=== PATIENT | female | born 1970 | race Caucasian/White ===

== ENCOUNTER 2016-10-15 17:34 | Emergency (ER) | payer OTHER ==
[~2016-10-15] VITALS: Ht 157.5 cm; Wt 80.7 kg
[~2016-10-15 17:34] MED LIST: ACETAMINOPHEN-H1 TA2; ADVAIR DISKUS 21 DSK; NORCO 5/325 MG1 TAB PO; PROVENTIL0.09 MG/A1 IH; QVAR HFA M80 MCG/ACT IH; SYNTHROID0.075 M1; SYNTHROID0.1 MG PO; SYNTHROID0.125 MG PO; SYNTHROID0.15 MG PO
[2016-10-15 17:51] VITALS: BP 158/71
--- NOTE | 2016-10-15 19:15 | NUR ---
PATIENT PRESENTS TO ED WITH BLE FEET SWELLING AND RIGHT CALF PAIN . PT STATES STARTED A FEW DAYS AGO, TOOK NORCO 10/325 WITH MINIMAL RELIEF . DENIES N/V/D; SKIN IS PINK/WARM/DRY; AAOX4 WITH EVEN AND STEADY GAIT; LUNGS CLEAR BL; HR EVEN AND REGULAR; PT DENIES ANY FEVER, CP, SOB, OR COUGH AT THIS TIME; PATIENT STATES PAIN OF 10/10 AT THIS TIME; VSS; PATIENT POSITIONED FOR COMFORT; HOB ELEVATED; BEDRAILS UP X2; BED DOWN. ER MD MADE AWARE OF PT STATUS.
--- NOTE | 2016-10-15 19:16 | NUR ---
Patient ambulated to bed 7. RN evaluating patient at bedside.
--- NOTE | 2016-10-15 19:16 | NUR ---
Jesús ventura in ED - 10/15/16 at 1920 by [email or web address] Patient ambulated to bed 8. RN evaluating patient at bedside.
--- NOTE | 2016-10-15 19:39 | NUR ---
Dr. Aguillon evaluating patient at bedside.
--- NOTE | 2016-10-15 20:18 | NUR ---
PT TAKEN TO ULTRASOUND
--- NOTE | 2016-10-15 20:48 | NUR ---
PT RETURN FROM ULTRASOUND
[2016-10-15] MEDS ORDERED: HYDROmorphone 1 MG/ML AMP IVP ONE (21:10)
--- NOTE | 2016-10-15 22:10 | NUR ---
IV removed, catheter intact and site benign. Applied folded 4x4 gauze and tape to stop bleeding.
[2016-10-15 22:11] VITALS: BP 164/99
--- NOTE | 2016-10-15 22:11 | NUR ---
Patient discharged with v/s stable. Written and verbal after care instructions given and explained. Patient alert, oriented and verbalized understanding of instructions. Ambulatory with steady gait. All questions addressed prior to discharge. ID band removed. Patient advised to follow up with PMD. Rx of LOPID 600MG TABLET given. Patient educated on indication of medication including possible reaction and side effects. Opportunity to ask questions provided and answered.
== END 2016-10-15 22:11 | disposition home or self-care (01) ==
LOC: MED 17:41
PROC: 3E033GC Introduction of Other Therapeutic Substance into Peripheral Vein, Percutaneous Approach (ICD-10-PCS; principal; 2016-10-15)
PROC: 4A02X4Z Measurement of Cardiac Electrical Activity, External Approach (ICD-10-PCS; principal; 2016-10-15)
PROC: B54DZZZ Ultrasonography of Bilateral Lower Extremity Veins (ICD-10-PCS; 2016-10-15)
DX: I73.9 Peripheral vascular disease, unspecified (principal); R03.0 Elevated blood-pressure reading, without diagnosis of hypertension; Z32.02 Encounter for pregnancy test, result negative
CPT/HCPCS: 36415; 71010; 80053; 80061; 81002; 81025; 82550; 82553; 83880; 84484; 85025; 85379; 93005; 93970; 96374; 99285; J1170; Q0092

== ENCOUNTER 2016-12-12 19:34 | Emergency (ER) | payer OTHER ==
[~2016-12-12] VITALS: Ht 162.6 cm; Wt 78.1 kg
[~2016-12-12 19:34] MED LIST changes: -ACETAMINOPHEN-H1 TA2; -ADVAIR DISKUS 21 DSK; +ALBU0.0952 IH; +BECL0.089 IH; -NORCO 5/325 MG1 TAB PO; -PROVENTIL0.09 MG/A1 IH; -QVAR HFA M80 MCG/ACT IH; +SYN.1 PO; -SYNTHROID0.075 M1; -SYNTHROID0.1 MG PO; -SYNTHROID0.125 MG PO; -SYNTHROID0.15 MG PO
[2016-12-12 19:43] VITALS: BP 139/99
--- NOTE | 2016-12-12 19:50 | NUR ---
PT TAKEN TO OF2
--- NOTE | 2016-12-12 19:51 | NUR ---
PA EVALUATING PATIENT
[2016-12-12] MEDS ORDERED: diphenhydrAMINE 50 MG/ML VIAL IVP ONE (20:00)
[2016-12-12] MEDS ORDERED: methylPREDNISolone SS 125 MG in WATER STERILE 2 ML IV ONE (20:00)
[2016-12-12] MEDS ORDERED: FAMOTIDINE 20 MG/2 ML VIAL IVP ONE (20:00)
--- NOTE | 2016-12-12 20:35 | NUR ---
PT MOVED TO BED 3
--- NOTE | 2016-12-12 20:50 | NUR ---
45 Y/O F W/C/O HAVING AN ALLERGIC REACTION TO NAPROXEN. LUNGS CLEAR, SATS 98%. PT DENIES N/V/D; SKIN IS PINK/WARM/DRY; AAOX4 WITH EVEN AND STEADY GAIT; HR EVEN AND REGULAR; PT DENIES ANY FEVER, CP, SOB, OR COUGH AT THIS TIME; PATIENT STATES PAIN OF 8/10 AT THIS TIME; VSS; PATIENT POSITIONED FOR COMFORT; HOB ELEVATED; BEDRAILS UP X2; BED DOWN. ER MD MADE AWARE OF PT STATUS.
--- NOTE | 2016-12-12 21:30 | NUR ---
UNABLE TO START PIV, CN WILL ATTEMPT PIV
--- NOTE | 2016-12-12 21:55 | NUR ---
Dr. Martines evaluating patient at bedside.
[2016-12-12] MEDS ORDERED: predniSONE 20 MG TAB PO ONE (22:00)
[2016-12-12] MEDS ORDERED: FAMOTIDINE 20 MG TAB PO ONE (22:00)
[2016-12-12] MEDS ORDERED: diphenhydrAMINE 50 MG CAP PO ONE (22:00)
[2016-12-12] MEDS ORDERED: methylPREDNISolone SS 125 MG in WATER STERILE 2 ML IM ONE (22:00)
[2016-12-12] MEDS ORDERED: HYDROmorphone 1 MG/ML AMP IM ONE (22:00)
[2016-12-12] MEDS ORDERED: ONDANSETRON 4 MG ODT PO ONE (22:00)
--- NOTE | 2016-12-12 22:00 | NUR ---
PIV UNSUCCESSFUL. MD WILL CHANGE MEDS TO PO AND IM.
--- NOTE | 2016-12-12 22:36 | NUR ---
PT MOVED TO OF4
[2016-12-12 23:23] VITALS: BP 125/76
--- NOTE | 2016-12-12 23:24 | NUR ---
Patient discharged with v/s stable. Written and verbal after care instructions given and explained. Patient alert, oriented and verbalized understanding of instructions. Ambulatory with steady gait. All questions addressed prior to discharge. ID band removed. Patient advised to follow up with PMD. Rx of PREDISONE 20MG BID given. Patient educated on indication of medication including possible reaction and side effects. Opportunity to ask questions provided and answered.
== END 2016-12-12 23:24 | disposition home or self-care (01) ==
LOC: MED 19:34
DX: L29.9 Pruritus, unspecified (principal); T39.315A Adverse effect of propionic acid derivatives, initial encounter; Y92.89 Other specified places as the place of occurrence of the external cause; J45.909 Unspecified asthma, uncomplicated; Z88.6 Allergy status to analgesic agent; Z88.5 Allergy status to narcotic agent; Z88.1 Allergy status to other antibiotic agents
CPT/HCPCS: 96372; 99284; J1170; J1200; J2930; J3490; Q0163; S0119

== ENCOUNTER 2018-11-18 08:46 | Emergency (ER) | payer MEDICAID ==
[~2018-11-18] VITALS: Ht 152.4 cm; Wt 84.4 kg
--- NOTE | 2018-11-18 09:05 | NUR ---
BIB FRIEND. AAO X4 C/O LOWER ABD DIONI PAIN OF 7/10 THAT RADIATES TO R SIDE OF ABDOMEN WITH + N/V/D X 2 WEEKS, LBM: 11/18/18. TENDER TO TOUCH. ACTIVE BOWEL SOUNDS TO ALL 4 QUADRANTS. PALPATED NON MOBILE LUMP UNDER UMBILICAL AREA. DENIES SOB. AFEBRILE. HOB UP. BED SIDE RAILS UP X1. ON LOW BED POSITION, LOCKED. ER MADE AWARE OF PT STATUS.
--- NOTE | 2018-11-18 09:05 | NUR ---
Patient ambulated to bed 8. RN evaluating patient at bedside.
--- NOTE | 2018-11-18 09:10 | NUR ---
UNABLE TO GIVE URINE SPECIMEN AT THIS TIME
[2018-11-18] MEDS ORDERED: NACL 0.9% 1,000 ML IV SCH (09:20)
[2018-11-18] MEDS ORDERED: DICYCLOMINE HCL LIQUID 10 MG/5 ML UDC PO ONE (09:20)
[2018-11-18] MEDS ORDERED: NACL 0.9% 1,000 ML IV ONE (09:20)
[2018-11-18] MEDS ORDERED: PROMETHAZINE 25 MG/ML VIAL IM ONE (09:20)
--- NOTE | 2018-11-18 09:32 | NUR ---
US tech at bedside for exam.
[2018-11-18 09:41] LABS: BASOPHILS # (AUTO) 0.1 K/uL (0.00-0.22); BASOPHILS % (AUTO) 0.4 % (0.0-2.0); EOSINOPHILS # (AUTO) 0.2 K/uL (0-0.4); EOSINOPHILS % (AUTO) 1.4 % (0.0-4.0); HEMATOCRIT 41.1 % (36-48); HEMOGLOBIN 13.6 g/dL (12.0-16.0); LYMPHOCYTES # (AUTO) 1.9 K/uL (2.5-16.5); LYMPHOCYTES % (AUTO) 14.2 % (20.5-51.1); MEAN CORPUSCULAR HEMOGLOBIN 28 pg (27-31); MEAN CORPUSCULAR HGB CONC 33 g/dL (33-37); MEAN CORPUSCULAR VOLUME 84.8 fL (80-94); MONOCYTES # (AUTO) 0.7 K/uL (0.8-1.0); MONOCYTES % (AUTO) 5.2 % (1.7-9.3); NEUTROPHILS # (AUTO) 10.6 K/uL (1.8-7.7); NEUTROPHILS % (AUTO) 78.8 % (42.2-75.2); PLATELET COUNT (AUTO) 263 K/uL (140-450); RED BLOOD CELL COUNT(AUTO) 4.84 MIL/uL (4.20-5.40); RED CELL DISTRIBUTION WIDTH 14.9 % (11.6-13.7); WHITE BLOOD COUNT (AUTO) 13.4 K/uL (4.8-10.8)
[2018-11-18 09:49] LABS: ANION GAP 15.4 (8-16); CARBON DIOXIDE 26.3 mmol/L (21-32); CREATININE 0.9 mg/dL (0.6-1.3); POTASSIUM 3.7 mmol/L (3.5-5.1)
--- NOTE | 2018-11-18 09:50 | NUR ---
PT UNABLE TO GIVE URINE SPECIMEN AT THIS TIME.
[2018-11-18 09:54] LABS: ALBUMIN 3.9 g/dL (3.4-5.0); TOTAL BILIRUBIN 0.3 mg/dL (0.0-1.0)
--- NOTE | 2018-11-18 09:59 | NUR ---
Patient taken to CT scan via wheelchair by tech.
--- NOTE | 2018-11-18 10:08 | NUR ---
Patient returned from CT scan. RN re-evaluating patient at bedside.
--- NOTE | 2018-11-18 10:16 | NUR ---
Dr. Stephens re-evaluating patient at bedside.
--- NOTE | 2018-11-18 10:52 | NUR ---
URINE SAMPLE OBTAINED FROM PT.
[2018-11-18 11:21] LABS: APPEARANCE,URINE CLEAR (CLEAR); BILIRUBIN,URINE NEGATIVE (NEGATIVE); BLOOD, URINE 2+ (NEGATIVE); COLOR,URINE YELLOW (YELLOW); LEUKOCYTE ESTERASE ,URINE NEGATIVE (NEGATIVE); NITRITE, URINE NEGATIVE (NEGATIVE); UGLUCOSE NEGATIVE (NEGATIVE)
[2018-11-18 11:29] LABS: RBC,URINE 11-20 (MOD) /HPF (0-5); WBC,URINE 0-5 /HPF (0-5)
[2018-11-18 11:30] LABS: URINE AMORPHOUS URATE 1+ /HPF (None Seen)
--- NOTE | 2018-11-18 11:49 | NUR ---
PATIENT GIVEN BUS PASS VOUCHER.
[2018-11-18 11:50] VITALS: BP 129/78
--- NOTE | 2018-11-18 11:50 | NUR ---
Patient discharged with v/s stable. Written and verbal after care instructions given and explained. Patient alert, oriented and verbalized understanding of instructions. Ambulatory with steady gait. All questions addressed prior to discharge. ID band removed. Patient advised to follow up with PMD. Rx of Tramadol, Colace, Ciprofloxacin given. Patient educated on indication of medication including possible reaction and side effects. Opportunity to ask questions provided and answered.
== END 2018-11-18 11:50 | disposition home or self-care (01) ==
LOC: MED 08:46
DX: R16.0 Hepatomegaly, not elsewhere classified (principal); K57.90 Diverticulosis of intestine, part unspecified, without perforation or abscess without bleeding; J45.909 Unspecified asthma, uncomplicated; E07.9 Disorder of thyroid, unspecified; Z79.899 Other long term (current) drug therapy; Z88.1 Allergy status to other antibiotic agents; Z88.5 Allergy status to narcotic agent; Z88.8 Allergy status to other drugs, medicaments and biological substances
CPT/HCPCS: 36415; 74176; 76705; 80053; 81001; 81025; 82150; 83690; 84703; 85025; 96360; 96361; 96372; 99284; J2550; J7030; Q0092

== ENCOUNTER 2018-12-06 17:30 | Emergency (ER) | payer MEDICAID ==
[~2018-12-06] VITALS: Ht 157.5 cm; Wt 85.7 kg
[2018-12-06 17:34] VITALS: BP 154/110
--- NOTE | 2018-12-06 17:48 | NUR ---
W/C WAIT IN LOBBY
--- NOTE | 2018-12-06 17:58 | NUR ---
BIB SON. AAO X4 C/O JERO FOOT WOUND ,SWOLLEN & PAIN 10/10 X 1 WEEK. PT JERO SHERIFFS OFFICER TO TOUCH. WOUND TO L FOOT MEDIAL, RED WOUND BASE, PERIWOUND MACERATED, NO DISCHARGE NOTED. WOUND TO R FOOT, BETWEEN 1ST AND 2ND TOE DIGIT, MACERATION NOTED. PT DENIES TRAUMA OR INJURY. HOB UP. BED SIDE RAILS UP X1. ON LOW BED POSITION, LOCKED. ER MADE AWARE OF PT STATUS.
--- NOTE | 2018-12-06 17:58 | NUR ---
PATIENT TO BED #1 VIA W/C
--- NOTE | 2018-12-06 18:38 | NUR ---
ISRA MICHELLE AT BEDSIDE FOR PT EVALUATION
[2018-12-06] MEDS ORDERED: HYDROcodone/APAP 5/325 MG 1 TAB TAB PO ONE (18:45)
[2018-12-06] MEDS ORDERED: BACITRACIN OINT 500 UNITS/GM PKT TP ONE (18:45)
--- NOTE | 2018-12-06 18:57 | NUR ---
PT TOLERATED MEDICATION AND WOUND CARE ORDERED
[2018-12-06] MEDS ORDERED: cefTRIAXone 1,000 MG in LIDOCAINE MPF 1% - 5 mL VIAL 2.1 ML IM ONE (20:30)
[2018-12-06 21:06] VITALS: BP 145/88
--- NOTE | 2018-12-06 21:06 | NUR ---
Patient discharged with v/s stable. Written and verbal after care instructions given and explained. Patient alert, oriented and verbalized understanding of instructions. Ambulatory with steady gait. All questions addressed prior to discharge. ID band removed. Patient advised to follow up with PMD. Rx of Bactrim DS, Bacitracin, Keflex, [place] 5 mg-325 mg given. Patient educated on indication of medication including possible reaction and side effects. Opportunity to ask questions provided and answered.
== END 2018-12-06 21:06 | disposition home or self-care (01) ==
LOC: MED 17:30
DX: L97.429 Non-pressure chronic ulcer of left heel and midfoot with unspecified severity (principal); L08.89 Other specified local infections of the skin and subcutaneous tissue; L03.116 Cellulitis of left lower limb; J45.909 Unspecified asthma, uncomplicated; E07.9 Disorder of thyroid, unspecified; Z88.1 Allergy status to other antibiotic agents; Z88.6 Allergy status to analgesic agent; Z79.899 Other long term (current) drug therapy
CPT/HCPCS: 73630; 82948; 96372; 99283; J0696; J2001; Q0092

== ENCOUNTER 2021-03-15 02:36 | Inpatient (IN) | payer MEDICAID ==
[~2021-03-15] VITALS: Ht 157.5 cm; Wt 90.7 kg
[2021-03-15 02:40] VITALS: BP 133/90
--- NOTE | 2021-03-15 02:40 | NUR ---
TO BED VIA WHEELCHAIR
--- NOTE | 2021-03-15 02:49 | NUR ---
ERMD ASSESSING PT AT BEDSIDE.
[2021-03-15] MEDS ORDERED: ONDANSETRON 4 MG/2 ML VIAL IVP ONE (02:55)
[2021-03-15] MEDS ORDERED: MORPHINE SULFATE 2 MG/ML SYR IVP ONE ×2 (02:55→05:00)
--- NOTE | 2021-03-15 03:14 | NUR ---
PT TAKEN TO CT
--- NOTE | 2021-03-15 03:20 | NUR ---
PT RETURN FROM CT
--- NOTE | 2021-03-15 04:11 | NUR ---
patient complaining of pain that feels like cramping, DBP in the 100s-- ERMD made aware
[2021-03-15 04:18] LABS: ALBUMIN 3.9 g/dL (3.4-5.0); ANION GAP 17.6 (8-16); CARBON DIOXIDE 27.4 mmol/L (21-32); CREATININE 0.9 mg/dL (0.6-1.3); TOTAL BILIRUBIN 0.5 mg/dL (0.0-1.0)
[2021-03-15] MEDS ORDERED: NACL 0.9% 1,000 ML IV ONE (04:30)
[2021-03-15] MEDS ORDERED: POTASSIUM CHL 20 MEQ/NACL 0.9% 1,000 ML IV ONE (04:30)
[2021-03-15] MEDS ORDERED: INSULIN REGULAR, HUMAN 100 UNIT/ML VIAL IVP ONE (04:30)
--- NOTE | 2021-03-15 05:05 | NUR ---
PATIENT C/O PAIN IN THE ABDOMEN AND IT LOOKS ENLARGED WITH PAIN WHEN PALPATED-- ERMD MADE AWARE.
[2021-03-15 05:40] LABS: BASOPHILS % (AUTO) 0.2 % (0.0-2.0); EOSINOPHILS % (AUTO) 0.1 % (0.0-4.0); HEMATOCRIT 44.5 % (36-48); LYMPHOCYTES # (AUTO) 2.9 K/uL (2.5-16.5); LYMPHOCYTES % (AUTO) 35.4 % (20.5-51.1); MEAN CORPUSCULAR HEMOGLOBIN 29 pg (27-31); MEAN CORPUSCULAR HGB CONC 34 g/dL (33-37); MEAN CORPUSCULAR VOLUME 86.6 fL (80-94); MONOCYTES # (AUTO) 0.7 K/uL (0.8-1.0); MONOCYTES % (AUTO) 7.9 % (1.7-9.3); NEUTROPHILS # (AUTO) 4.7 K/uL (1.8-7.7); NEUTROPHILS % (AUTO) 56.4 % (42.2-75.2); PLATELET COUNT (AUTO) 221 K/uL (140-450); RED BLOOD CELL COUNT(AUTO) 5.14 MIL/uL (4.20-5.40); RED CELL DISTRIBUTION WIDTH 14.6 % (11.6-13.7); WHITE BLOOD COUNT (AUTO) 8.3 K/uL (4.8-10.8)
[2021-03-15] MEDS ORDERED: PIPERACILLIN/TAZOBACTAM 3.375 GM in DEXTROSE 5% 50 ML IV ONE (05:55)
[2021-03-15] MEDS ORDERED: fentaNYL citrate 0.05 MG/ML VIAL IVP ONE (05:55)
--- NOTE | 2021-03-15 06:00 | NUR ---
# 14 FR NG tube placed to RIGHT nare. Placement checked by auscultation of instilled air into stomach and aspiration of gastric contents. Tubing taped in place to prevent dislodging. Patient tolerated well.
--- NOTE | 2021-03-15 06:07 | NUR ---
Jesús ventura in [facility] - 03/15/21 at 0607 by [email or web address]
--- NOTE | 2021-03-15 06:08 | NUR ---
Dr. Santiago examining patient.
[2021-03-15] MEDS ORDERED: PIPERACILLIN/TAZOBACTAM 3.375 GM VIAL IV ONE (06:22)
--- NOTE | 2021-03-15 07:10 | NUR ---
patient to ct via [facility]
--- NOTE | 2021-03-15 07:20 | NUR ---
REPORT RECEIVED FROM OMARI SINGH. TRANSFER OF CARE RECEIVED
--- NOTE | 2021-03-15 08:24 | NUR ---
KAMRYN SCALES COLLECTED AND WALKED OVER TO LAB
--- NOTE | 2021-03-15 08:24 | NUR ---
PT CLEANDED AND PROVIDED WITH FRESH LINEN. CURRENT GLUCOSE 372. MADE AWARE AND STATED HE WILL PLACE ORDERS.
[2021-03-15] MEDS ORDERED: METF-350 PO (08:28)
[2021-03-15] MEDS ORDERED: AMLO2.5T PO (08:28)
--- NOTE | 2021-03-15 08:34 | NUR ---
XRAY BEDSIDE WITH PT
[2021-03-15] MEDS ORDERED: DOCUSATE SODIUM 100 MG GELCAP PO PRN (08:40)
[2021-03-15] MEDS ORDERED: SODIUM PHOS / POTASSIUM PHOS 1 PKT PDR PO PRN (08:40)
[2021-03-15] MEDS ORDERED: DEXTROSE 50% 50 ML SYR IVP PRN (08:40)
[2021-03-15] MEDS ORDERED: ACETAMINOPHEN 325 MG TAB PO PRN (08:40)
[2021-03-15] MEDS ORDERED: MAG SULF 2000 MG/WATER PREMIX 50 ML IV PRN (08:40)
[2021-03-15] MEDS: INSULIN LISPRO SLIDING SCALE 100 UNITS/ML VIAL SUBQ PRN ×4 (09:14→21:58)
--- NOTE | 2021-03-15 09:16 | NUR ---
Patient will be admitted to care of [facility]. Admited to TELE. Will go to room 118. Belongings list completed. Report to .
[2021-03-15] MEDS: PANTOPRAZOLE 40 MG INJ VIAL IVP SCH ×2 (09:21→11:05)
[2021-03-15] MEDS: DEXT 5% / NACL 0.45% 1,000 ML IV SCH (09:22)
[2021-03-15 09:26] LABS: MAGNESIUM 1.8 mg/dL (1.8-2.4); PHOSPHORUS 2.3 mg/dL (2.5-4.9)
--- NOTE | 2021-03-15 09:41 | NUR ---
Note audrey in EDM - 03/15/21 at 0941 by [email or web address] Patient will be admitted to care of DR. DAVIS. Admited to TELE. Will go to room 118. Belongings list completed. Report to OMARI ROCK.
[2021-03-15] MEDS ORDERED: PROMETHAZINE 25 MG/ML VIAL IM PRN (10:30)
[2021-03-15] MEDS ORDERED: HYDROcodone/APAP 7.5/325 MG 1 TAB PO PRN ×2 (10:30→19:05)
[2021-03-15] MEDS: ONDANSETRON 4 MG/2 ML VIAL IM/IVP PRN (11:05)
[2021-03-15] MEDS: LORazepam 2 MG/ML VIAL IM/IVP PRN ×2 (11:09→21:22)
[2021-03-15] MEDS: MORPHINE SULFATE 2 MG/ML SYR IVP PRN ×2 (11:09→17:27)
[2021-03-15 11:25] VITALS: BP 164/99
[2021-03-15 11:55] VITALS: BP 164/99
[2021-03-15 16:00] VITALS: BP 145/88
[2021-03-15] MEDS: BLOOD GLUCOSE MONITORING 1 DEV DEV FS SCH ×3 (17:07→21:42)
[2021-03-15] MEDS ORDERED: hydrALAZINE 10 MG TAB PO PRN (19:00)
[2021-03-15] MEDS ORDERED: HYDROmorphone 1 MG/ML AMP IVP ONE (19:15)
--- NOTE | 2021-03-15 19:20 | NUR ---
RECEIVED REPORT FROM SHWETA SALCIDO FOR CONTINUITY OF CARE. PT SITTING UP AAOX4. NO APPARENT S/S OF ACUTE DISTRESS. BREATHING EVEN AND UNLABORED ON RA WITH O2 SAT OF 95%. NO C/O CP OR SOB. R UA 20G INTACT/PATENT WITH D5 1/2NS@50ML/HR. POC AND WHITE COMMUNICATION BOARD UPDATED. BED IN LOW/LOCKED POSITION. CALL LIGHT WITHIN REACH. PT ENCOURAGED TO CALL FOR ANY NEEDS/ASSISTANCE. WILL CONTINUE TO MONITOR.
[2021-03-15 20:00] VITALS: BP 143/85
[2021-03-15] MEDS ORDERED: cefTRIAXone 1,000 MG VIAL ONE (20:19)
[2021-03-15] MEDS: metroNIDAZOLE 500 MG/NS PREMIX 100 ML IV SCH (21:53)
[2021-03-16] VITALS: BP 137/93
[2021-03-16] MEDS: DEXT 5% / NACL 0.45% 1,000 ML IV SCH (00:40)
[2021-03-16] MEDS: MORPHINE SULFATE 2 MG/ML SYR IVP PRN ×4 (02:22→18:40)
[2021-03-16] MEDS: LORazepam 2 MG/ML VIAL IM/IVP PRN ×2 (02:38→22:12)
[2021-03-16 04:00] VITALS: BP 160/90
[2021-03-16] MEDS ORDERED: LEVOTHYROXINE 0.1 MG TAB ONE (05:24)
[2021-03-16] MEDS: LEVOTHYROXINE 0.1 MG TAB PO SCH (05:35)
[2021-03-16] MEDS: metroNIDAZOLE 500 MG/NS PREMIX 100 ML IV SCH ×3 (05:35→22:22)
--- NOTE | 2021-03-16 06:53 | NUR ---
PT SITTING UP AAOX4. NO APPARENT S/S OF ACUTE DISTRESS. BREATHING EVEN AND UNLABORED. BED IN LOW/LOCKED POSITION. CALL LIGHT WITHIN REACH. WILL ENDORSE CARE TO AM RN. ALL NEEDS MET AT THIS TIME.
[2021-03-16 06:59] LABS: BASOPHILS % (AUTO) 0.5 % (0.0-2.0); EOSINOPHILS % (AUTO) 0.4 % (0.0-4.0); HEMATOCRIT 44.4 % (36-48); LYMPHOCYTES # (AUTO) 2.4 K/uL (2.5-16.5); LYMPHOCYTES % (AUTO) 28.5 % (20.5-51.1); MEAN CORPUSCULAR HEMOGLOBIN 30 pg (27-31); MEAN CORPUSCULAR HGB CONC 34 g/dL (33-37); MEAN CORPUSCULAR VOLUME 87.4 fL (80-94); MONOCYTES # (AUTO) 0.6 K/uL (0.8-1.0); MONOCYTES % (AUTO) 7.4 % (1.7-9.3); NEUTROPHILS # (AUTO) 5.3 K/uL (1.8-7.7); NEUTROPHILS % (AUTO) 63.2 % (42.2-75.2); PLATELET COUNT (AUTO) 201 K/uL (140-450); RED BLOOD CELL COUNT(AUTO) 5.08 MIL/uL (4.20-5.40); RED CELL DISTRIBUTION WIDTH 14.6 % (11.6-13.7); WHITE BLOOD COUNT (AUTO) 8.4 K/uL (4.8-10.8)
[2021-03-16 07:17] LABS: CARBON DIOXIDE 27.8 mmol/L (21-32); CREATININE 0.7 mg/dL (0.6-1.3)
--- NOTE | 2021-03-16 07:20 | NUR ---
RECEIVED REPORT FROM 1ST PRESSMAN ON WEB PRESS NURSE FOR CONTINUITY OF CARE. PATIENT SLEEPING. PATIENT ON ROOM AIR. NO DISTRESS NOTED. ALL SAFETY MEASURES IN PLACE. WILL CONTINUE TO MONITOR.
[2021-03-16 07:28] LABS: POTASSIUM 2.8 mmol/L (3.5-5.1)
[2021-03-16] MEDS: BLOOD GLUCOSE MONITORING 1 DEV DEV FS SCH ×4 (07:30→21:00)
[2021-03-16 08:00] VITALS: BP 162/82
--- NOTE | 2021-03-16 08:20 | NUR ---
PATIENT HAS BEEN SCREENED AND CATEGORIZED HIGH NUTRITION RISK. PATIENT WILL BE SEEN WITHIN 1-2 DAYS OF ADMISSION. 03/16/[address]
[2021-03-16] MEDS: amLODIPine 5 MG TAB PO SCH (08:37)
--- NOTE | 2021-03-16 08:37 | NUR ---
PATIENT AWAKE AND ALERT. NO ACUTE DISTRESS NOTED. ROUTINE MEDICATION GIVEN. DR. DAVIS AT BEDSIDE. ALL SAFETY MEASURES IN PLACE. WILL CONTINUE TO MONITOR.
[2021-03-16] MEDS: ONDANSETRON 4 MG/2 ML VIAL IM/IVP PRN (08:39)
[2021-03-16] MEDS: INSULIN LISPRO SLIDING SCALE 100 UNITS/ML VIAL SUBQ PRN ×4 (09:06→21:46)
[2021-03-16] MEDS ORDERED: ALBUTEROL SULFATE/IPRATROPIU 3 ML SOL IH PRN (09:20)
--- NOTE | 2021-03-16 10:00 | NUR ---
PER DR. DAVIS GIVE PATIENT TWO KRIDERS FOR PATIENT POTASSIUM LEVEL 2.8. WILL NOTIFY PHARMACY.
--- NOTE | 2021-03-16 10:04 | NUR ---
CALLED PHARMACY TO NOTIFY THAT TODAY PROTONIX 40 MG DOSE WAS GIVEN YESTERDAY. PER PHARMACY GIVE TODAYS DOSE UNDER UNSCHEDULED MEDICATION.
[2021-03-16] MEDS: PANTOPRAZOLE 40 MG INJ VIAL IVP SCH (10:07)
[2021-03-16] MEDS: POTASSIUM CHLORIDE 40 MEQ, LIDOCAINE MPF 1% 25 MG in NACL 0.9% 250 ML IV PRN (10:07)
[2021-03-16] MEDS: NACL 0.9% 1,000 ML IV SCH ×2 (10:10→18:37)
--- NOTE | 2021-03-16 11:32 | NUR ---
PATIENT AWAKE AND ALERT. PATIENT ON 1 L VIA NASAL CANNULA SATING AT 96 %. ALL SAFETY MEASURES IN PLACE. WILL CONTINUE TO MONITOR.
[2021-03-16 12:00] VITALS: BP 138/86
--- NOTE | 2021-03-16 13:20 | NUR ---
PATIENT SLEEPING. BREATHING EVEN AND UNLABORED. PATIENT ON 1 LITER VIA NASAL CANNULA SATING AT 94%. ALL SAFETY MEASURES IN PLACE. WILL CONTINUE TO MONITOR.
[2021-03-16] MEDS ORDERED: CRUSHER, PILL MC ONE (13:38)
[2021-03-16] MEDS: CYCLOBENZAPRINE 10 MG TAB PO SCH ×2 (13:45→17:30)
--- NOTE | 2021-03-16 14:29 | NUR ---
PATIENT AWAKE. BREATHING EVEN AND UNLABORED. PATIENT ON NASAL CANULA 1 LITER. SATING AT 96%. ADVERTISING SALES MANAGER AT BEDSIDE PROVIDING ASSISTANCE WITH ADL'S. ALL SAFETY MEASURES AND CALL LIGHT IN REACH. WILL CONTINUE TO MONITOR.
--- NOTE | 2021-03-16 15:59 | NUR ---
03/16/21 RD INITIAL ASSESSMENT COMPLETED PLEASE REFER TO NUTRITION ASSESSMENT UNDER CARE ACTIVITY FOR ESTIMATED NUTRITIONAL NEEDS. 1. CONTINUE CLEAR LIQUIDS DIET TOLERATED 2. RECOMMEND ENSURE CLEAR TID 3. IF/WHEN PATIENT IS MEDICALLY STABLE AND TOLERATES PO INTAKE, RECOMMEND CCHO [address] TO FOLLOW-UP 2-3 DAYS, HIGH RISK MEGHANA PASCAL RD
[2021-03-16 16:00] VITALS: BP 141/74
--- NOTE | 2021-03-16 16:16 | NUR ---
PATIENT SLEEPING. NO ACUTE DISTRESS NOTED. BREATHING EVEN AND UNLABORED. PATIENT ON ONE LITER NASAL CANNULA SATING AT 94%. ALL SAFETY MEASURES IN PLACE. CALL LIGHT WITHIN REACH. WILL CONTINUE TO MONITOR.
[2021-03-16] MEDS ORDERED: POTASSIUM CHLORIDE 40 MEQ, LIDOCAINE MPF 1% 25 MG in NACL 0.9% 250 ML IV SCH (17:00)
[2021-03-16 17:27] LABS: LACTATE DEHYDROGENASE 296 U/L (81-234)
--- NOTE | 2021-03-16 18:30 | NUR ---
PATIENT AWAKE AND ALERT. PATIENT ON 1 L VIA NASAL CANNULA SATING AT 96%. BOBBIN HAULER AT BEDSIDE. ALL SAFETY MEASURES IN PLACE. CALL LIGHT WITHIN REACH. WILL CONTINUE TO MONITOR.
--- NOTE | 2021-03-16 19:10 | NUR ---
ENDORSED TO CABIN AGENT NURSE FOR CONTINUITY OF CARE. PATIENT STABLE. ALL SAFETY MEASURES IN PLACE. CALL LIGHT WITHIN REACH.
--- NOTE | 2021-03-16 19:30 | NUR ---
RECEIVED REPORT AT BEDSIDE FOR CONTINUITY OF CARE, PT IN STABLE CONDITION.
[2021-03-16 20:00] VITALS: BP 141/92
--- NOTE | 2021-03-16 20:00 | NUR ---
PT LYING IN BED AOX4 WITH 1 LITER 02 VIA N/C. V/S STABLE PT HAS IV SITE 22G ON RIGHT UPPER ARM RUNNING N/S ORDERED. ALL ORDERED PRECAUTIONS IN PLACE.
--- NOTE | 2021-03-16 21:30 | NUR ---
JOEL HART MD ORDERED QUESTRON , VANCO PO AND C-DIFF STOOL TEST. PT RECEIVED THE QUESTRON . PO VANCO NOT AVAILABLE. IV ABT HUNG AD RUNNING ORDERED,. EDUCATION REGARDNG PT DX AND MEDICATIONS PROVIDED AT BEDSIDE, PT VERBELIZED UNDERSTANDING.
[2021-03-16] MEDS: CHOLESTYRAMINE 4 GM/9 GM PKT PO SCH (22:05)
[2021-03-16] MEDS: HYDROmorphone 1 MG/ML AMP IVP PRN (22:06)
--- NOTE | 2021-03-16 22:15 | NUR ---
PT GIVEN DILAUDID FOR SEVERE PAIN IN ABDOMEN , SHE WAS TURNED, CHANGED AND REPOSITIONED IN BED.
[2021-03-17] VITALS: BP 138/94
[2021-03-17] MEDS: MORPHINE SULFATE 2 MG/ML SYR IVP PRN ×5 (00:44→21:48)
[2021-03-17 04:00] VITALS: BP 141/90
[2021-03-17] MEDS: HYDROmorphone 1 MG/ML AMP IVP PRN ×2 (04:29→19:11)
--- NOTE | 2021-03-17 04:30 | NUR ---
PT WAS TURNED CHANGED AND REPOSITIONED IN BED. STOOL COLLECTED FOR C-DIFF TEST AND SENT TO LAB. PT GIVEN DIALUDID FOR C/O SEVERE PAIN .
[2021-03-17] MEDS: metroNIDAZOLE 500 MG/NS PREMIX 100 ML IV SCH ×3 (04:54→20:40)
[2021-03-17] MEDS: NACL 0.9% 1,000 ML IV SCH ×2 (05:00→15:00)
[2021-03-17] MEDS: VANCOMYCIN 500 MG VIAL PO SCH ×4 (06:00→17:46)
[2021-03-17] MEDS: LEVOTHYROXINE 0.1 MG TAB PO SCH (06:08)
[2021-03-17] MEDS: INSULIN LISPRO SLIDING SCALE 100 UNITS/ML VIAL SUBQ PRN ×3 (06:25→21:06)
--- NOTE | 2021-03-17 06:30 | NUR ---
PT GIVEN REQUESTED ATIVAN AND MORPHINE FOR ANXIETY AND MODERATE PAIN . IN ABDOMEN. PT WAS TURNED AND REPOSITIONED IN BED. FINGERSTICK IS 168, SHE WAS GIVEN 2 UNITS OF HUMALOG PER S/S.
[2021-03-17] MEDS: LORazepam 2 MG/ML VIAL IM/IVP PRN ×2 (06:37→12:33)
[2021-03-17] MEDS: BLOOD GLUCOSE MONITORING 1 DEV DEV FS SCH ×4 (06:39→21:07)
[2021-03-17 06:59] LABS: BASOPHILS # (AUTO) 0.1 K/uL (0.00-0.22); BASOPHILS % (AUTO) 0.9 % (0.0-2.0); EOSINOPHILS # (AUTO) 0.1 K/uL (0-0.4); EOSINOPHILS % (AUTO) 0.7 % (0.0-4.0); HEMATOCRIT 45.1 % (36-48); HEMOGLOBIN 14.7 g/dL (12.0-16.0); LYMPHOCYTES % (AUTO) 26.6 % (20.5-51.1); MEAN CORPUSCULAR HEMOGLOBIN 29 pg (27-31); MEAN CORPUSCULAR HGB CONC 33 g/dL (33-37); MEAN CORPUSCULAR VOLUME 88.5 fL (80-94); MONOCYTES # (AUTO) 0.6 K/uL (0.8-1.0); MONOCYTES % (AUTO) 7.8 % (1.7-9.3); NEUTROPHILS # (AUTO) 4.7 K/uL (1.8-7.7); PLATELET COUNT (AUTO) 180 K/uL (140-450); RED BLOOD CELL COUNT(AUTO) 5.09 MIL/uL (4.20-5.40); RED CELL DISTRIBUTION WIDTH 14.8 % (11.6-13.7); WHITE BLOOD COUNT (AUTO) 7.4 K/uL (4.8-10.8)
[2021-03-17 07:12] LABS: ANION GAP 12.2 (8-16); CARBON DIOXIDE 26.1 mmol/L (21-32); CREATININE 0.6 mg/dL (0.6-1.3); POTASSIUM 3.3 mmol/L (3.5-5.1); TOTAL BILIRUBIN 0.5 mg/dL (0.0-1.0)
--- NOTE | 2021-03-17 07:20 | NUR ---
RECEIVE REPORT FROM HOSPITAL MONITOR NURSE FOR CONTINUITY OF CARE. PATIENT AWAKE AND ALERT. PATIENT ON 1L NC SATING AT 97%. ALL SAFETY MEASURES IN PLACE. CALL LIGHT WITHIN REACH. WILL CONTINUE TO MONITOR.
[2021-03-17 08:00] VITALS: BP 142/94
[2021-03-17] MEDS: ASCORBIC ACID 500 MG TAB PO SCH (08:27)
[2021-03-17] MEDS: PANTOPRAZOLE 40 MG INJ VIAL IVP SCH (08:27)
[2021-03-17] MEDS: ZINC SULF 220 MG CAP PO SCH (08:28)
[2021-03-17] MEDS: amLODIPine 5 MG TAB PO SCH (08:28)
[2021-03-17] MEDS: CYCLOBENZAPRINE 10 MG TAB PO SCH ×3 (08:29→17:46)
[2021-03-17] MEDS: VITAMIN D 400 IU TAB PO SCH (08:29)
[2021-03-17] MEDS: CHOLESTYRAMINE 4 GM/9 GM PKT PO SCH ×2 (08:29→20:41)
[2021-03-17] MEDS: ENOXAPARIN 40 MG/0.4 ML SYR SUBQ SCH (08:32)
[2021-03-17] MEDS: PHARMACY COMMENTS MC SCH (08:52)
--- NOTE | 2021-03-17 09:07 | NUR ---
PATIENT ALERT AND AWAKE. NO ACUTE DISTRESS NOTED. PATIENT ON 1 L VIA NASAL CANNULA. PATIENT STATING AT 96%. ALL SAFETY MEASURES IN PLACE. CALL LIGHT WITHIN REACH. WILL CONTINUE TO MONITOR.
[2021-03-17] MEDS: POTASSIUM CHLORIDE 40 MEQ, LIDOCAINE MPF 1% 25 MG in NACL 0.9% 250 ML IV PRN (10:31)
--- NOTE | 2021-03-17 10:35 | NUR ---
KRIDER GIVEN FOR POTASSIUM LEVEL 3.3
--- NOTE | 2021-03-17 11:30 | NUR ---
PATIENT AWAKE AND ALERT. NO ACUTE DISTRESS NOTED. PATIENT ON 1 L NASAL CANNULA. PATIENT SATING AT 96%. DRAWING KILN SUPERVISOR AT BEDSIDE PROVIDING PATIENT CARE. ALL SAFETY MEASURES IN PLACE. CALL LIGHT WITHIN REACH WILL CONTINUE TO MONITOR.
[2021-03-17 12:00] VITALS: BP 162/78
--- NOTE | 2021-03-17 12:55 | NUR ---
PATIENT AWAKE AND ALERT. NO ACUTE DISTRESS NOTED. PATEIN ON 1 LITER VIA NASAL CANNULA. PATIENT SATING AT 96%. ALL SAFETY MEASURES IN PLACE. CALL LIGHT WITHIN REACH. WILL CONTINUE TO MONITOR.
--- NOTE | 2021-03-17 14:35 | NUR ---
PATIENT AWAKE AND ALERT. NO ACUTE DISTRESS NOTED. PATIENT ON 1 L VIA NASAL CANNULA. PATIENT SATING AT 96%. ALL SAFETY MEASURES IN PLACE. CALL LIGHT WITHIN REACH. WILL CONTINUE TO MONITOR.
[2021-03-17 16:00] VITALS: BP 143/80
--- NOTE | 2021-03-17 16:52 | NUR ---
PATIENT SLEEPING. BREATHING EVEN AND UNLABORED. EASY TO AROUSE. PATIENT ON 1 LITER NASAL CANNULA. PATIENT SATING AT 96%. ALL SAFETY MEASURES IN PLACE. CALL LIGHT WITHIN REACH. WILL CONTINUE TO MONITOR.
--- NOTE | 2021-03-17 19:15 | NUR ---
ENDORSED TO TRANSPORTATION TECHNICIAN NURSE FOR CONTINUITY OF CARE. PATIENT STABLE. ALL SAFETY MEASURES IN PLACE.
--- NOTE | 2021-03-17 19:40 | NUR ---
RECEIVED BEDSIDE ENDORSEMENT FROM AM SHIFT RN. SAFETY MEASURES IN PLACE, CALL LIGHT WITHIN REACH, WILL CONTINUE TO MONITOR, KEPT COMFORTABLE, A&OX4.
[2021-03-17 20:00] VITALS: BP 128/77
--- NOTE | 2021-03-17 20:42 | NUR ---
RADIOLOGY AT BEDSIDE
--- NOTE | 2021-03-17 21:10 | NUR ---
RECEIVED SCHEDULED MEDS, BS 158 - GAVE 2 UNITS PER SLIDING SCALE RIGHT UPPER ARM, ASSISTED PT WITH A DIAPER CHANGE, SKIN IS DRY AND INTACT, CALL LIGHT WITHIN REACH, KEPT COMFORTABLE, WILL CONTINUE TO MONITOR.
--- NOTE | 2021-03-17 21:48 | NUR ---
PATIENT SAID SHE HAD ABDOMINAL PAIN, GAVE MORPHINE TO ALLEVIATE THE PAIN, WILL REASSESS AT 22:48.
[2021-03-18] VITALS: BP 145/88
[2021-03-18] MEDS: VANCOMYCIN 500 MG VIAL PO SCH ×5 (00:01→23:47)
[2021-03-18] MEDS: NACL 0.9% 1,000 ML IV SCH ×3 (00:02→21:00)
[2021-03-18] MEDS: LORazepam 2 MG/ML VIAL IM/IVP PRN ×3 (00:21→21:47)
--- NOTE | 2021-03-18 00:21 | NUR ---
PT FEELING ANXIOUS AND AGITATED. PRN ATIVAN GIVEN. NO S/SX OF DISTRESS. WILL CONTINUE TO MONITOR.
--- NOTE | 2021-03-18 02:11 | NUR ---
ROUNDS MADE. PT ASLEEP. VISIBLE CHEST RISE AND FALL NOTED. NO S/SX OF RESPIRATORY DISTRESS NOTED. O2 IN PLACE. CURRENT SPO2 96%. SAFETY MEASURES IN PLACE. WILL CONTINUE TO MONITOR.
[2021-03-18 04:00] VITALS: BP 145/88
[2021-03-18] MEDS: MORPHINE SULFATE 2 MG/ML SYR IVP PRN ×5 (04:06→21:20)
[2021-03-18] MEDS: metroNIDAZOLE 500 MG/NS PREMIX 100 ML IV SCH ×3 (04:06→21:18)
--- NOTE | 2021-03-18 04:06 | NUR ---
VS STABLE. O2 IN PLACE. PT NOT IN DISTRESS. SPO2 97%. PT COMPLAINING OF ABDOMINAL PAIN 12/31. PRN MORPHINE GIVEN ORDERED. CALL LIGHT WITHIN REACH. WILL CONTINUE TO MONITOR.
[2021-03-18] MEDS: LEVOTHYROXINE 0.1 MG TAB PO SCH (06:38)
[2021-03-18] MEDS: BLOOD GLUCOSE MONITORING 1 DEV DEV FS SCH ×4 (06:53→21:20)
[2021-03-18] MEDS: INSULIN LISPRO SLIDING SCALE 100 UNITS/ML VIAL SUBQ PRN ×2 (06:55→21:22)
[2021-03-18 07:10] LABS: ALBUMIN 2.9 g/dL (3.4-5.0); ANION GAP 13.3 (8-16); CARBON DIOXIDE 26.6 mmol/L (21-32); CREATININE 0.5 mg/dL (0.6-1.3); TOTAL BILIRUBIN 0.7 mg/dL (0.0-1.0)
[2021-03-18 07:16] LABS: BASOPHILS % (AUTO) 0.4 % (0.0-2.0); EOSINOPHILS # (AUTO) 0.2 K/uL (0-0.4); EOSINOPHILS % (AUTO) 2.6 % (0.0-4.0); HEMATOCRIT 43.1 % (36-48); HEMOGLOBIN 14.3 g/dL (12.0-16.0); LYMPHOCYTES # (AUTO) 1.7 K/uL (2.5-16.5); LYMPHOCYTES % (AUTO) 28.5 % (20.5-51.1); MEAN CORPUSCULAR HEMOGLOBIN 29 pg (27-31); MEAN CORPUSCULAR HGB CONC 33 g/dL (33-37); MEAN CORPUSCULAR VOLUME 87.4 fL (80-94); MONOCYTES # (AUTO) 0.5 K/uL (0.8-1.0); MONOCYTES % (AUTO) 7.9 % (1.7-9.3); NEUTROPHILS # (AUTO) 3.7 K/uL (1.8-7.7); NEUTROPHILS % (AUTO) 60.6 % (42.2-75.2); PLATELET COUNT (AUTO) 191 K/uL (140-450); RED BLOOD CELL COUNT(AUTO) 4.93 MIL/uL (4.20-5.40); RED CELL DISTRIBUTION WIDTH 14.4 % (11.6-13.7); WHITE BLOOD COUNT (AUTO) 6.1 K/uL (4.8-10.8)
--- NOTE | 2021-03-18 07:54 | NUR ---
PASSED BEDSIDE ENDORSEMENT TO AM SHIFT RN, COMPLETED ALL INTERVENTIONS AND SCHEDULED MEDICATIONS.
[2021-03-18 08:00] VITALS: BP 144/80
--- NOTE | 2021-03-18 08:00 | NUR ---
NURSE REPORT REPORT OBTAINED FROM NIGHT NURSE EDUARDO AT 0754 AND THIS NURSE ASSUMED CARE OF PATIENT. VSS. AFEB. NO C/O PAIN OR DISCOMFORT. CALL LIGHT WITHIN REACH. SIDE RAILS ELEVATED X 2.
[2021-03-18 08:46] LABS: POTASSIUM 2.9 mmol/L (3.5-5.1)
[2021-03-18] MEDS: INSULIN LANTUS 100 UNITS/ML 10 ML VIAL SUBQ SCH (09:00)
[2021-03-18] MEDS: VITAMIN D 400 IU TAB PO SCH (09:29)
[2021-03-18] MEDS: CYCLOBENZAPRINE 10 MG TAB PO SCH ×3 (09:30→17:00)
[2021-03-18] MEDS: amLODIPine 5 MG TAB PO SCH (09:30)
[2021-03-18] MEDS: CHOLESTYRAMINE 4 GM/9 GM PKT PO SCH ×2 (09:31→21:18)
[2021-03-18] MEDS: ASCORBIC ACID 500 MG TAB PO SCH (09:31)
[2021-03-18] MEDS: METOCLOPRAMIDE 10 MG TAB PO SCH ×3 (09:40→16:30)
[2021-03-18] MEDS: ZINC SULF 220 MG CAP PO SCH (09:40)
[2021-03-18] MEDS: PANTOPRAZOLE 40 MG INJ VIAL IVP SCH (09:40)
[2021-03-18] MEDS: ENOXAPARIN 40 MG/0.4 ML SYR SUBQ SCH (10:33)
[2021-03-18 12:00] VITALS: BP 132/85
--- NOTE | 2021-03-18 12:00 | NUR ---
NURSE CARE VSS. AFEB. K 2.9 AND POTASSIUM 40 mEq HUNG AT 1031. TELE MONITOR SINUS RHYTHM WITH HR 90. MORPHINE 2 MG GIVEN AT 0948 WITH RELIE O PAIN. GETTING REGLAN 5 MG PO CHEDULED. ZOFRAN 4 MG GIVEN IVP X 1 FOR N/V. C/O ANXIETY AND GIVEN ATIVAN 2 MG. PATIENT ABLE TO SLEEP. BUT SHE GET INCONTINENT OF URINE AND DIARRHEA OFTEN. ON LIQUID PO VANCOMYCIN.
[2021-03-18] MEDS: PHARMACY COMMENTS MC SCH (12:03)
--- NOTE | 2021-03-18 15:42 | NUR ---
03/18/21 RD FOLLOW UP COMPLETED PLEASE REFER TO NUTRITION ASSESSMENT UNDER CARE ACTIVITY FOR ESTIMATED NUTRITIONAL NEEDS. 1. CONTINUE CLEAR LIQUIDS DIET TOLERATED 2. RECOMMEND ENSURE CLEAR TID 3. IF/WHEN PATIENT IS MEDICALLY STABLE AND TOLERATES PO INTAKE, RECOMMEND CCHO [address] TO FOLLOW-UP 2-3 DAYS, HIGH RISK MEGHANA PASCAL RD
[2021-03-18 16:00] VITALS: BP 142/89
--- NOTE | 2021-03-18 16:00 | NUR ---
NURSE NOTES VSS. AFEB. MEDICATED WITH MORPHINE 2 MG AT 1417 FOR PAIN WITH RELIEF. TELE WITH SR 90. ON OTC THE CLOCK REGLAN. PATIENT IV NEEDED TO BE RETAPED SINCE SHE WOULD BLEND HER ARM, AND STOP FLOW OF IV.
--- NOTE | 2021-03-18 18:00 | NUR ---
NURSE NOTES BG BEFORE DINNER WITH CLEAR LIQUID 123. NO INSULIN NEEDED. VSS. AFEB. PATIENT HAD 4-5 INCONTINENT OF STOOL AND URINE. INSTRUCTED TO CALL NURSE TO USE BEDPAN. FOREIGN LAW CONSULTANT HAD TO CLEAN HER OFTEN. SHE REQUESTED A BSC, BUT PATIENT DOESN'T MOVE MUCH IN BED. WOULD HAVE CRYING PERIOD AND ENCOURAGED TO VENT FEELINGS.
--- NOTE | 2021-03-18 19:25 | NUR ---
NURSE REPORT AND ENDORSEMENT REPORT GIVEN TO NIGHT NURSE ABEL TO ASSUME CARE OF PATIENT. MEDICATED FOR PAIN LAST AT 1900 WITH RELIEF OF PAIN.
--- NOTE | 2021-03-18 19:45 | NUR ---
RECEIVED REPORT FROM AM NURSE SUSAN. PATIENT ON BED RESTING. NO COMPLAINTS OF PAIN AT THIS TIME. NO S/S OF RESPIRATORY DISTRESS. ALL SAFETY PRECAUTIONS ARE IN PLACE. IVF INFUSING. CALL LIGHT WITHIN REACH. WILL CONTINUE TO MONITOR.
[2021-03-18 20:00] VITALS: BP 128/75
--- NOTE | 2021-03-18 21:18 | NUR ---
SCHEDULED MEDS GIVEN ORDERED. ALL NEEDS MET. CALL LIGHT WITHIN REACH.
[2021-03-18] MEDS: HYDROmorphone 1 MG/ML AMP IVP PRN (21:45)
--- NOTE | 2021-03-18 21:47 | NUR ---
PATIENT IS FEELING ANXIOUS. ATIVAN GIVEN ORDERED
--- NOTE | 2021-03-18 22:30 | NUR ---
PATIENT IN BED WATCHING TV CALMLY.
[2021-03-19] VITALS: BP 138/74
[2021-03-19] MEDS: MORPHINE SULFATE 2 MG/ML SYR IVP PRN ×3 (02:16→13:25)
[2021-03-19] MEDS: LORazepam 2 MG/ML VIAL IM/IVP PRN (02:18)
[2021-03-19 04:00] VITALS: BP 139/81
[2021-03-19] MEDS: metroNIDAZOLE 500 MG/NS PREMIX 100 ML IV SCH ×2 (05:01→13:27)
[2021-03-19] MEDS: VANCOMYCIN 500 MG VIAL PO SCH ×2 (05:02→13:26)
[2021-03-19] MEDS: LEVOTHYROXINE 0.1 MG TAB PO SCH (05:52)
[2021-03-19] MEDS: NACL 0.9% 1,000 ML IV SCH (06:58)
[2021-03-19] MEDS: BLOOD GLUCOSE MONITORING 1 DEV DEV FS SCH ×2 (06:58→13:26)
[2021-03-19] MEDS: METOCLOPRAMIDE 10 MG TAB PO SCH ×2 (07:15→13:26)
[2021-03-19 07:42] LABS: BASOPHILS % (AUTO) 0.4 % (0.0-2.0); EOSINOPHILS # (AUTO) 0.2 K/uL (0-0.4); EOSINOPHILS % (AUTO) 3.2 % (0.0-4.0); HEMATOCRIT 42.6 % (36-48); LYMPHOCYTES # (AUTO) 1.6 K/uL (2.5-16.5); LYMPHOCYTES % (AUTO) 27.1 % (20.5-51.1); MEAN CORPUSCULAR HEMOGLOBIN 29 pg (27-31); MEAN CORPUSCULAR HGB CONC 33 g/dL (33-37); MEAN CORPUSCULAR VOLUME 87.8 fL (80-94); MONOCYTES # (AUTO) 0.5 K/uL (0.8-1.0); MONOCYTES % (AUTO) 8.5 % (1.7-9.3); NEUTROPHILS # (AUTO) 3.7 K/uL (1.8-7.7); NEUTROPHILS % (AUTO) 60.8 % (42.2-75.2); PLATELET COUNT (AUTO) 203 K/uL (140-450); RED BLOOD CELL COUNT(AUTO) 4.86 MIL/uL (4.20-5.40); RED CELL DISTRIBUTION WIDTH 14.6 % (11.6-13.7)
[2021-03-19 07:50] LABS: ALBUMIN 2.9 g/dL (3.4-5.0); ANION GAP 11.8 (8-16); CARBON DIOXIDE 28.1 mmol/L (21-32); CREATININE 0.5 mg/dL (0.6-1.3); TOTAL BILIRUBIN 0.7 mg/dL (0.0-1.0)
[2021-03-19 08:00] VITALS: BP 133/76
[2021-03-19 08:07] LABS: POTASSIUM 2.9 mmol/L (3.5-5.1)
--- NOTE | 2021-03-19 09:09 | NUR ---
Notified Physician of 2.9 potassium and patient already has prn potassium
[2021-03-19] MEDS: ENOXAPARIN 40 MG/0.4 ML SYR SUBQ SCH (10:06)
[2021-03-19] MEDS: POTASSIUM CHLORIDE 20% 40 MEQ/15 ML UDC PO SCH ×2 (10:07→13:25)
[2021-03-19] MEDS: VITAMIN D 400 IU TAB PO SCH (10:07)
[2021-03-19] MEDS: PANTOPRAZOLE 40 MG INJ VIAL IVP SCH (10:07)
[2021-03-19] MEDS: CYCLOBENZAPRINE 10 MG TAB PO SCH ×2 (10:08→13:25)
[2021-03-19] MEDS: ZINC SULF 220 MG CAP PO SCH (10:08)
[2021-03-19] MEDS: amLODIPine 5 MG TAB PO SCH (10:08)
[2021-03-19] MEDS: ASCORBIC ACID 500 MG TAB PO SCH (10:08)
[2021-03-19] MEDS: CHOLESTYRAMINE 4 GM/9 GM PKT PO SCH (10:09)
[2021-03-19] MEDS: INSULIN LANTUS 100 UNITS/ML 10 ML VIAL SUBQ SCH (10:18)
[2021-03-19] MEDS: PHARMACY COMMENTS MC SCH (10:19)
[2021-03-19] MEDS ORDERED: VANC125C11 PO (10:35)
[2021-03-19] MEDS ORDERED: METO-485 PO (10:35)
[2021-03-19] MEDS ORDERED: POTA10TE30 PO (10:35)
[2021-03-19] MEDS ORDERED: GLIP10TA12 PO (10:35)
[2021-03-19] MEDS ORDERED: DEC4 PO (10:35)
[2021-03-19] MEDS ORDERED: METF-350 PO (10:35)
[2021-03-19] MEDS ORDERED: ACET-5636 PO (10:47)
[2021-03-19 12:00] VITALS: BP 139/86
[2021-03-19 13:08] VITALS: BP 139/86
--- NOTE | 2021-03-19 14:36 | NUR ---
Patient discharged home and was given education on disease process, medication and all questions answered. Patient verbalized understanding and taken off the unit.
--- NOTE | 2021-03-19 15:12 | NUR ---
DC PLANNING: TC FROM NURSING STATING THAT THE PATIENT DOESN'T HAVE A RIDE HOME AND HAS NO MONEY TO PAY FOR TRANSPORT. CM SPOKE WITH PATIENT BY PHONE TO CONFIRM HER ADDRESS. PATIENT IS COVID +, TRANSPORT SET UP WITH [facility] TIME BETWEEN 2-3 PM. TRANSPORT ENDORSED TO PATIENTS OMARI ROCK. CM WILL FOLLOW NEEDED.
== END 2021-03-19 14:20 | disposition home or self-care (01) | DRG 137 ==
LOC: MED 02:36 → MTU 08:40
PROVIDERS: ADMIT Hospitalist; ATTEND Hospitalist
DX: U07.1 COVID-19 (principal); E44.1 Mild protein-calorie malnutrition; K76.0 Fatty (change of) liver, not elsewhere classified; R18.8 Other ascites; K52.9 Noninfective gastroenteritis and colitis, unspecified; K43.9 Ventral hernia without obstruction or gangrene; E87.6 Hypokalemia; E03.9 Hypothyroidism, unspecified; I10 Essential (primary) hypertension; J45.909 Unspecified asthma, uncomplicated; M19.90 Unspecified osteoarthritis, unspecified site; K57.30 Diverticulosis of large intestine without perforation or abscess without bleeding; K76.89 Other specified diseases of liver; E11.65 Type 2 diabetes mellitus with hyperglycemia; Z90.710 Acquired absence of both cervix and uterus; Z90.49 Acquired absence of other specified parts of digestive tract; Z88.1 Allergy status to other antibiotic agents; Z88.8 Allergy status to other drugs, medicaments and biological substances; Z82.49 Family history of ischemic heart disease and other diseases of the circulatory system
CPT/HCPCS: 36415; 43760; 71045; 74018; 76705; 80048; 80053; 82550; 82728; 82948; 83036; 83605; 83615; 83690; 83735; 84100; 85025; 85379; 85610; 85651; 85730; 86140; 86886; 86900; 86901; 87040; 87070; 96365; 96366; 96375; 96376; 99285; C9113; J0696; J1170; J1650; J1815; J2001; J2060; J2270; J2405; J2543; J3010; J3370; J3480; J3490; J7030; J7060; J8597; Q9967